=== PATIENT | female | born 1995 | race Caucasian/White ===

== ENCOUNTER 2016-08-14 10:26 | Emergency (ER) | payer OTHER ==
[~2016-08-14] VITALS: Ht 165.1 cm; Wt 59.1 kg
[2016-08-14] MEDS ORDERED: SEASONIQUE1 TAB PO (10:37)
[2016-08-14 12:13] VITALS: BP 128/81; PULSE 110; TEMP 99
== END 2016-08-14 12:14 | disposition home or self-care (01) ==
LOC: COL.ER 10:26
DX: R51 Headache (principal); V48.5XXA Car driver injured in noncollision transport accident in traffic accident, initial encounter; Y92.410 Unspecified street and highway as the place of occurrence of the external cause